=== PATIENT | male | born 1990 | race Caucasian/White ===

== ENCOUNTER 2018-02-27 16:34 | Emergency (ER) | payer OTHER ==
[2018-02-27] MEDS ORDERED: METHOCARBAMOL 500 MG TABLET PO ONE (17:42)
[2018-02-27] MEDS ORDERED: OXYCODONE-ACETAMINOPHEN 5-325 MG TABLET PO ONE (17:42)
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
[2018-02-27 19:13] VITALS: BP 128/80
== END 2018-02-27 19:13 | disposition home or self-care (01) ==
LOC: ER 16:34
DX: S16.1XXA Strain of muscle, fascia and tendon at neck level, initial encounter (principal); S39.012A Strain of muscle, fascia and tendon of lower back, initial encounter; V89.2XXA Person injured in unspecified motor-vehicle accident, traffic, initial encounter
CPT/HCPCS: 72110; 72125; 99284